=== PATIENT | male | born 1985 ===

== ENCOUNTER 2021-01-07 16:13 | Emergency (ER) ==
[~2021-01-07] VITALS: Ht 193 cm; Wt 92.7 kg
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
== END 2021-01-08 00:55 | disposition left against medical advice (07) ==
LOC: M ED 16:13
DX: Z53.21 Procedure and treatment not carried out due to patient leaving prior to being seen by health care provider (principal)